=== PATIENT | male | born 1945 | race Hispanic/Latino ===

== ENCOUNTER 2019-07-19 09:14 | Emergency (ER) | payer MEDICARE ==
[2019-07-19] MEDS ORDERED: oxyCODONE /ACETAMINOPHEN 5-325MG TAB PO PRN (10:05)
--- NOTE | 2019-07-19 10:15 | Emergency Department Report ---
<AMY LAM M - Last Filed: 07/19/19 15:41> ED Back Pain/Injury HPI - General Chief Complaint: Fall Stated Complaint: SOB Time Seen by Provider: 07/19/19 09:51 - Related Data Home Medications Medication Instructions Recorded Confirmed Last Taken Aspirin [Aspirin BABY CHEW TAB] 81 mg PO QDAY 07/19/19 07/19/19 Unknown Atorvastatin [Lipitor] 80 mg PO QHS 07/19/19 07/19/19 Unknown Clopidogrel [Plavix] 75 mg PO QDAY 07/19/19 07/19/19 Unknown Diphenhydramine HCl [Nighttime 50 mg PO QHS PRN 07/19/19 07/19/19 Unknown Sleep Aid LIQUID] Losartan [Cozaar] 12.5 mg PO QDAY 07/19/19 07/19/19 Unknown Metoprolol 50 mg PO QDAY 07/19/19 07/19/19 Unknown Omeprazole 20 mg PO QDAY 07/19/19 07/19/19 Unknown Allergies Allergy/AdvReac Type Severity Reaction Status Date / Time codeine Allergy Severe RAPID Unverified 03/31/14 13:13 HEART RATE ED Past Medical Hx - Medications Home Medications: Home Medications Medication Instructions Recorded Confirmed Last Taken Type Aspirin [Aspirin BABY CHEW TAB] 81 mg PO QDAY 07/19/19 07/19/19 Unknown History Atorvastatin [Lipitor] 80 mg PO QHS 07/19/19 07/19/19 Unknown History Clopidogrel [Plavix] 75 mg PO QDAY 07/19/19 07/19/19 Unknown History Diphenhydramine HCl [Nighttime 50 mg PO QHS PRN 07/19/19 07/19/19 Unknown History Sleep Aid LIQUID] Losartan [Cozaar] 12.5 mg PO QDAY 07/19/19 07/19/19 Unknown History Metoprolol 50 mg PO QDAY 07/19/19 07/19/19 Unknown History Omeprazole 20 mg PO QDAY 07/19/19 07/19/19 Unknown History ED Course - Reevaluation(s) Reevaluation #2: I seen and examined the patient. He is neurologically intact. He is a bit dysarthric but this may be his baseline. He moves his arms and legs with 5 out of 5 power. He is well oriented. 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 He has an abrasion of his right elbow but no deformity. This will be x-rayed. I discussed this case in detail with Dr. Mamadou Lucero the ICU physician at [facility]. He was very kind to accept the patient for transfer to Dr. chan the neurosurgeon. 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 Patient is pending transfer to [facility]. 07/19/19 12:08 07/19/19 15:41 ED Medical Decision Making - Lab Data Result diagrams: 07/19/19 11:33 07/19/19 11:33 ED Disposition Clinical Impression: Subdural hematoma Disposition: [id number]/TX-[id number] ANOTHER TYPE HLTHCARE Condition: Stable Referrals: HANOVER DYLANBEARDSLEY MD VINICIO [Primary Care Provider] - 3-5 Days <PEDRO ELDER - Last Filed: 07/20/19 09:23> ED Back Pain/Injury HPI - General Source: EMS Limitations: No Limitations - History of Present Illness Complaint: back pain, other (scalp hematoma) -: Sudden, hour(s) Place: home Consistency: constant Improves With: none Worsens With: movement Context: fall ED Review of Systems ROS: Stated complaint: SOB Other details as noted in HPI Comment: All other systems reviewed and negative Musculoskeletal: back pain Skin: other (abrasion to right elbow) Neurological: other (scalp hematoma) ED Past Medical Hx - Past Medical History Previous Medical History?: Yes Hx Hypertension: No Hx Heart Attack/AMI: No Hx Congestive Heart Failure: Yes (EF IS 29%) Hx Deep Vein Thrombosis: No Hx Pulmonary Embolism: No Hx Renal Disease: No Hx Arthritis: Yes Hx Seizures: No Hx Asthma: No Hx COPD: No - Surgical History Past Surgical History?: Yes Hx Pacemaker: No Hx Cholecystectomy: No Hx Appendectomy: No - Social History Smoking Status: Current Every Day Smoker Substance Use Type: None ED Physical Exam - General Limitations: No Limitations - Head Head exam: Present: other (right scalp hematoma) - Eye Eye exam: Present: other (left eye abnormality ). Absent: PERRL - ENT ENT exam: Present: normal exam, mucous membranes moist - Neck Neck exam: Present: normal inspection, full ROM - Respiratory Respiratory exam: Present: normal lung sounds bilaterally - Cardiovascular Cardiovascular Exam: Present: irregular rhythm - GI/Abdominal GI/Abdominal exam: Present: soft. Absent: distended, tenderness - Rectal Rectal exam: Present: deferred - Expanded Upper Extremity Exam Right Elbow exam: Present: full ROM, abrasion. Absent: swelling, crepidus - Back Exam Back exam: Present: vertebral tenderness - Neurological Exam Neurological exam: Present: alert, oriented X3. Absent: motor sensory deficit - Psychiatric Psychiatric exam: Present: normal affect - Skin Skin exam: Present: abrasion ED Course Vital Signs 07/19/19 07/19/19 07/19/19 09:23 10:15 11:47 Temperature 98.2 F Pulse Rate 78 75 Respiratory 16 28 H 28 H Rate Blood Pressure 151/97 O2 Sat by Pulse 96 99 99 Oximetry 07/19/19 07/19/19 07/19/19 12:00 12:15 12:31 Temperature Pulse Rate 78 71 70 Respiratory 26 H 22 21 Rate Blood Pressure 147/91 152/83 154/75 O2 Sat by Pulse 95 96 95 Oximetry 07/19/19 07/19/19 07/19/19 12:45 13:00 13:15 Temperature Pulse Rate 70 71 70 Respiratory 21 24 19 Rate Blood Pressure 144/78 149/80 150/71 O2 Sat by Pulse 95 95 Oximetry 07/19/19 07/19/19 07/19/19 13:31 13:45 14:15 Temperature Pulse Rate 72 68 67 Respiratory 29 H 26 H 22 Rate Blood Pressure 155/87 146/87 150/88 O2 Sat by Pulse 97 95 Oximetry 07/19/19 07/19/19 14:45 15:50 Temperature 98.2 F Pulse Rate 65 65 Respiratory 19 19 Rate Blood Pressure 140/84 O2 Sat by Pulse 96 96 Oximetry - Reevaluation(s) Reevaluation #1: 07/19/19 11:54 Patient and family updated on his condition he has small sudural ED Medical Decision Making - Lab Data Result diagrams: 07/19/19 11:33 07/19/19 11:33 - EKG Data Interpretation: nonspecific ST-T wave annita, LVH (with secondary repolarization abnormality), other (multiform ventricular premature complexes) - Radiology Data Radiology results: report reviewed CT LUMBAR IMPRESSION: No acute injury of the lumbar spine is appreciated. Moderate multilevel degenerative change is identified. Central canal stenosis is suspected at L2-3. Osteopenia. A large AAA is incompletely imaged but no obvious retroperitoneal hemorrhage on this exam. Moderate left common iliac artery aneurysm. CT Cervical Spine FINDINGS: Alignment: Spinal alignment is normal. Bones: Mild osteopenia is evident. Moderate multilevel discogenic disc disease is identified. C6- 7 is the most affected level. There are multiple bridging or near bridging anterior osteophytes from the level of C2-C6. Minimal facet arthropathy is identified which is most pronounced at C3-4. No evidence for fracture, subluxation or suspicious bony lesion. Soft tissues: No acute or significant incidental soft tissue abnormality. IMPRESSION: Osteopenia. Moderate multilevel degenerative changes described. No acute injury is appreciated. CT HEAD IMPRESSION: Small acute subdural hemorrhage between the frontal lobes along the anterior falx as described. Age appropriate volume loss and chronic white matter changes. Atrophic left eyeball. Critical result discovered at 1058 EST hours and called to Dr. Lam at 1102 EST hours on 07/19/2019. A read back was performed. X-ray right elbow FINDINGS: BONES / JOINT(S): No acute fracture or subluxation. No significant arthritis. SOFT TISSUES: No significant abnormality. - Medical Decision Making This is a 73-year-old white male states he slipped and fell on the ramp at home. Denies loss of consciousness struck his head and lower back on the ramp. Patient went to work and stated his coworkers felt like he was not acting like his normal self. EMS was called and patient was transferred to this facility. Patient's complaining of moderate to severe lower back pain and right scalp hematoma. Ct of head, neck and lumbar spine. CT head + for small subdural hematoma. Xray of right elbow negative for fracture. Dr. Lam in to see patient and notified pt and family of results and plan and treatment. Dr. Lam spoke with transfer center.Pt accepted to [facility]. Incident findings on Lumbar CT of large AAA no retroperitoneal bleeding. Accepting MD also notified of this finding. Critical Care Time: No Critical care attestation.: If time is entered above; I have spent that time in minutes in the direct care of this critically ill patient, excluding procedure time. ED Disposition Is pt being admited?: No Does the pt Need Aspirin: No Time of Disposition: 15:30
--- NOTE | 2019-07-19 11:07 | Cat Scan Report ---
CT HEAD WITHOUT CONTRAST INDICATION / CLINICAL INFORMATION: head trauma. Headache after slipped and fell on ice. TECHNIQUE: Axial imaging performed from the skull apex through the skull base without the use of cont rast. Sagittal and coronal reformatted images. All CT scans at this location are performed using CT dose reduction for ALARA by means of automated exposure control. COMPARISON: None available. FINDINGS: CEREBRAL PARENCHYMA: Mild diffuse cortical volume loss and mild chronic white matter changes are iden tified which appear appropriate for this patient's age. No acute intraparenchymal abnormality. No chr onic infarct is identified. HEMORRHAGE: Yes EXTRA-AXIAL SPACES: A small subdural hemorrhage is identified between the frontal lobes adjacent to t he anterior falx measuring 3.6 cm AP and 0.6 cm transverse. Internal density measures 67 Hounsfield u nits. No mass effect is appreciated. The remaining extra-axial spaces are unremarkable. VENTRICULAR SYSTEM: Normal in size and morphology for the patient's age. MIDLINE SHIFT OR HERNIATION: None. CEREBELLUM / BRAINSTEM: No significant abnormality. CALVARIUM: No significant abnormality. ORBITS: The left globe is atrophic with a retinal calcifications. The right globe and retro-orbital c ontents are unremarkable. PARANASAL SINUSES / MASTOID AIR CELLS: Normal as visualized. SOFT TISSUES of HEAD: No significant abnormality. ADDITIONAL FINDINGS: None. IMPRESSION: Small acute subdural hemorrhage between the frontal lobes along the anterior falx as described. Age appropriate volume loss and chronic white matter changes. Atrophic left eyeball. Critical result discovered at 1058 EST hours and called to Dr. Medina at 1102 EST hours on 07/19/2019. A read back was performed. Signer Name: Harjit Edwards Jr, MD Signed: 07/19/2019 11:03 AM Workstation Name: [id number]
[2019-07-19] MEDS ORDERED: levETIRAcetam 1000 MG/NS 0.75% 1,000 MG/100 ML BAG IV ONE (11:16)
--- NOTE | 2019-07-19 11:16 | Cat Scan Report ---
CT LUMBAR SPINE WITHOUT CONTRAST INDICATION: Lower back pain.. Slipped and fell on ice TECHNIQUE: Axial imaging performed through the lumbar spine without the use of contrast. Sagittal a nd coronal reconstructed images were also reviewed. All CT scans at this location are performed usin g CT dose reduction for SHYLA by means of automated exposure control. COMPARISON: None FINDINGS: Alignment: Spinal alignment is normal. Bones: Osteopenia is evident. Moderate multilevel discogenic DJD and facet arthropathy are identifi ed. L4-5 appears to be the most affected disc level. L2-3 appears to be the most affected facet joint s. No evidence for displaced fracture, bone lesion or compression deformity. Although intraspinal co ntents are limited on noncontrast CT, moderate central canal stenosis is suspected at L2-3. Soft tissues: Diffuse arterial calcifications are identified. A large infrarenal AAA is suspected alt adarsh it is incompletely evaluated on this exam. No obvious retroperitoneal hemorrhage. Fusiform dila tation of the left common iliac artery measures up to 2.4 cm. IMPRESSION: No acute injury of the lumbar spine is appreciated. Moderate multilevel degenerative change is identi fied. Central canal stenosis is suspected at L2-3. Osteopenia. A large AAA is incompletely imaged but no obvious retroperitoneal hemorrhage on this exam. Moderate l eft common iliac artery aneurysm. Signer Name: Harjit Edwards Jr, MD Signed: 07/19/2019 11:12 AM Workstation Name: [id number]
--- NOTE | 2019-07-19 11:32 | Cat Scan Report ---
CT CERVICAL SPINE SPINE WITHOUT CONTRAST INDICATION: Neck pain after slipped and fell on ice. TECHNIQUE: Axial imaging performed through the cervical spine without the use of contrast. Sagittal and coronal reconstructed images were also reviewed. All CT scans at this location are performed us ing CT dose reduction for ALARA by means of automated exposure control. COMPARISON: None FINDINGS: Alignment: Spinal alignment is normal. Bones: Mild osteopenia is evident. Moderate multilevel discogenic disc disease is identified. C6-7 is the most affected level. There are multiple bridging or near bridging anterior osteophytes from th e level of C2-C6. Minimal facet arthropathy is identified which is most pronounced at C3-4. No evide nce for fracture, subluxation or suspicious bony lesion. Soft tissues: No acute or significant incidental soft tissue abnormality. IMPRESSION: Osteopenia. Moderate multilevel degenerative changes described. No acute injury is appre ciated. Signer Name: Harjit Edwards Jr, MD Signed: 07/19/2019 11:28 AM Workstation Name: [id number]
--- NOTE | 2019-07-19 11:38 | XRay Report ---
CHEST 1 VIEW INDICATION: hypertension. COMPARISON: None FINDINGS: Support devices: 2-lead pacemaker device is in position. 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 Heart: Borderline heart size. Lungs/Pleura: The lungs are generally clear. No evidence for pneumonia, large pleural fluid or pneumo thorax. Additional findings: The bony structures are mildly demineralized. No obvious displaced thoracic frac ture. IMPRESSION: No acute findings. Signer Name: Harjit Edwards Jr, MD Signed: 07/19/2019 11:32 AM Workstation Name: [id number]
[2019-07-19 11:45] LABS: Basophils # (Auto) 0.1 K/mm3 (0.0-0.1); Basophils % (Auto) 1.3 % (0.0-1.8); Eosinophils # (Auto) 0.1 K/mm3 (0.0-0.4); Eosinophils % (Auto) 0.5 % (0.0-4.3); Hematocrit 42.8 % (35.5-45.6); Hemoglobin 14.3 gm/dl (11.8-15.2); Lymphocytes # (Auto) 2.1 K/mm3 (1.2-5.4); Lymphocytes % (Auto) 18.7 % (13.4-35.0); Mean Corpuscular HGB Conc 33 % (32-34); Mean Corpuscular Volume 91 fl (84-94); Monocytes # (Auto) 0.8 K/mm3 (0.0-0.8); Monocytes % (Auto) 7.1 % (0.0-7.3); Platelet Count 145 K/mm3 (140-440); Red Blood Count 4.73 M/mm3 (3.65-5.03); Red Cell Distribution Width 14.6 % (13.2-15.2)
[2019-07-19 11:53] LABS: INR 1.04 (0.87-1.13)
[2019-07-19 11:54] LABS: Partial Thromboplastin Time 31.6 Sec. (24.2-36.6)
[2019-07-19 12:06] LABS: Alanine Aminotransferase 13 units/L (7-56); Albumin 4.5 g/dL (3.9-5); BUN/Creatinine Ratio 13; Bilirubin,Direct 0.2 mg/dL (0-0.2); Blood Urea Nitrogen 14 mg/dL (9-20); Calcium 9.2 mg/dL (8.4-10.2); Hemolysis Index 12
--- NOTE | 2019-07-19 12:43 | XRay Report ---
RIGHT ELBOW 2 VIEWS INDICATION / CLINICAL INFORMATION: right elbow injury COMPARISON: None available. FINDINGS: BONES / JOINT(S): No acute fracture or subluxation. No significant arthritis. SOFT TISSUES: No significant abnormality. ADDITIONAL FINDINGS: None. Signer Name: Jose Bob MD Signed: 07/19/2019 12:38 PM Workstation Name: [id number]
[2019-07-19] MEDS ORDERED: ONDANSETRON 4 MG/2 ML INJ IV ONE (13:58)
[2019-07-19] MEDS ORDERED: MORPHINE 2 MG/1 ML INJ IV ONE (13:58)
[2019-07-19 14:49] VITALS: BP 140/84
== END 2019-07-19 15:52 | disposition other institution (70) ==
LOC: ED 09:14
DX: S06.5X0A Traumatic subdural hemorrhage without loss of consciousness, initial encounter (principal); M54.5 Low back pain; I50.9 Heart failure, unspecified; M19.90 Unspecified osteoarthritis, unspecified site; F17.200 Nicotine dependence, unspecified, uncomplicated; Z79.899 Other long term (current) drug therapy; Z88.5 Allergy status to narcotic agent; Z98.890 Other specified postprocedural states; W01.0XXA Fall on same level from slipping, tripping and stumbling without subsequent striking against object, initial encounter; Y93.89 Activity, other specified; Y92.89 Other specified places as the place of occurrence of the external cause; Y99.8 Other external cause status
CPT/HCPCS: 36415; 70450; 71045; 72125; 72131; 73070; 80048; 80076; 85025; 85610; 85730; 93005; 93010; 96365; 96375; 99285; J1953; J2270; J2405